=== PATIENT | female | born 1990 | race African-American/Black ===

== ENCOUNTER 2018-05-19 09:15 | Observation (INO) ==
[2018-05-18 11:38] LABS: Basophils % 0.5 % (0.0-0.8); Eosinophils # 0.1 10*3/uL (0.0-0.87); Eosinophils % 1.5 % (0.00-10.9); Hematocrit 35.1 VOL% (35.7-47.0); Hemoglobin 11.8 GM/DL (12.0-16.0); Immature Granulocytes % 0.6 %; Immature Granulocytes Absolute 0.04 #; Lymphocytes # 1.4 10*3/uL (1.4-4.0); Lymphocytes % 23.1 % (21.3-54.2); Mean Corpuscular HGB Conc 33.6 GM/DL (32-36); Mean Corpuscular Hemoglobin 31 PG (27-34); Mean Corpuscular Volume 90.7 FL (87-102); Mean Platelet Volume 10.2 FL (9.6-12.0); Monocytes # 0.4 10*3/uL (0.11-0.8); Monocytes % 6.8 % (1.7-12.7); Neutrophils # 4.2 10*3/uL (1.4-7.4); Neutrophils % 67.5 % (38.7-73.9); Platelet Count 251 T/CUMM (130-400); Red Blood Count 3.87 MC/CUMM (3.8-5.5); Red Cell Distribution Width 14.6 % (9.3-17.3); White Blood Count 6.2 T/CUMM (4-12)
[2018-05-18 11:57] LABS: Amorphous Crystals,Urine Few /HPF (Few); Apearance,Urine CLOUDY (Clear); Bilirubin,Urine Negative (Negative); Blood, Urine Moderate mg/dL (Negative); Glucose,Urine (UA) Negative (Negative); Ketones,Urine Negative (Negative); Mucus,Urine Occasional /LPF (Occasional); Nitrite,Urine Negative (Negative); Protein,Urine Negative; Squamous Epithelial Cell,Urine Occasional /HPF (0-10); Urine Color Yellow (Yellow); Urine Specific Gravity 1.016 (1.001-1.035); Urine Urobilinogen < 2.0 EU/DL (0.2-1.0); WBC,Urine 3 /HPF (0-6)
[2018-05-18 11:59] LABS: Alanine Aminotransferase 14 U/L (13-56); Albumin 2.8 G/DL (3.4-5.0); Alkaline Phosphatase 37 U/L (45-117); Aspartate Amino Transferase 15 U/L (0-37); Bilirubin,Total < 0.39 MG/DL (0.2-1.0); Blood Urea Nitrogen 8 MG/DL (7-18); Calcium 8.3 MG/DL (8.5-10.1); Glucose 80 MG/DL (74-106); Osmolality,Calculated 273.5 MOS/KG (273-304); Potassium 3.7 MMOL/L (3.5-5.1); Sodium 139 MMOL/L (136-145); Total Protein 6.9 G/DL (6.4-8.3)
[2018-05-18 12:46] LABS: HIV Antigen/Antibody Result Nonreactive (Nonreactive)
[2018-05-19] MEDS ORDERED: LACTATED RINGERS 1,000 ML IV STA (10:04)
[2018-05-19] MEDS ORDERED: fentaNYL 100 MCG/2 ML VIAL ONE (13:52)
[2018-05-19] MEDS ORDERED: ONDANSETRON 4 MG/2 ML VIAL ONE (13:53)
[2018-05-19] MEDS ORDERED: BUPIVACAINE SPINAL 0.75% 2 ML AMP SPINAL ONE (13:53)
[2018-05-19] MEDS ORDERED: MEPERIDINE 50 MG/1 ML VIAL IM PRN (16:00)
[2018-05-19] MEDS ORDERED: ONDANSETRON 4 MG/2 ML VIAL IM PRN (16:00)
[2018-05-19] MEDS ORDERED: LACTATED RINGERS 1,000 ML IV SCH (18:00)
[2018-05-20 04:01] VITALS: BP 106/59
== END 2018-05-20 10:50 | disposition home or self-care (01) ==
LOC: N.OR 09:15 → N.LD 09:15 → N.SDSINP 09:16 → N.LD 15:12
PROVIDERS: ADMIT Obstetrics & Gynecology; ATTEND Obstetrics & Gynecology

== ENCOUNTER 2018-09-03 06:41 | Inpatient (IN) ==
[2018-09-03] MEDS ORDERED: CITRIC ACID/SODIUM CITRATE 30 ML UDCUP PO ONE (07:33)
[2018-09-03] MEDS ORDERED: ceFAZolin 2,000 MG in PREMIX 1 EACH IV ONE (07:33)
[2018-09-03] MEDS ORDERED: FAMOTIDINE 20 MG/2 ML VIAL IV ONE (07:33)
[2018-09-03] MEDS ORDERED: miSOPROStol 200 MCG TABLET ONE (07:53)
[2018-09-03] MEDS ORDERED: CARBOPROST TROMETHAMINE 250 MCG/ML AMP IM ONE (07:54)
[2018-09-03] MEDS ORDERED: METHYLERGONOVINE 0.2 MG/1 ML AMP ONE (07:54)
[2018-09-03 08:00] LABS: Basophils % 0.4 % (0.0-0.8); Eosinophils # 0.1 10*3/uL (0.0-0.87); Eosinophils % 1.1 % (0.00-10.9); Hematocrit 37.6 VOL% (35.7-47.0); Hemoglobin 12.2 GM/DL (12.0-16.0); Immature Granulocytes % 1.8 %; Lymphocytes # 1.3 10*3/uL (1.4-4.0); Lymphocytes % 23.6 % (21.3-54.2); Mean Corpuscular HGB Conc 32.4 GM/DL (32-36); Mean Corpuscular Hemoglobin 30 PG (27-34); Mean Corpuscular Volume 92.8 FL (87-102); Mean Platelet Volume 11.4 FL (9.6-12.0); Monocytes # 0.5 10*3/uL (0.11-0.8); Monocytes % 8.8 % (1.7-12.7); Neutrophils # 3.7 10*3/uL (1.4-7.4); Neutrophils % 64.3 % (38.7-73.9); Platelet Count 220 T/CUMM (130-400); Red Blood Count 4.05 MC/CUMM (3.8-5.5); Red Cell Distribution Width 14.3 % (9.3-17.3); White Blood Count 5.7 T/CUMM (4-12)
[2018-09-03] MEDS: LACTATED RINGERS 1,000 ML IV SCH ×2 (08:16→09:51)
[2018-09-03] MEDS ORDERED: METOCLOPRAMIDE 10 MG/2 ML VIAL IV ONE (08:23)
[2018-09-03 08:24] LABS: Alanine Aminotransferase 12 U/L (13-56); Albumin 2.3 G/DL (3.4-5.0); Alkaline Phosphatase 136 U/L (45-117); Aspartate Amino Transferase 13 U/L (0-37); Bilirubin,Total < 0.39 MG/DL (0.2-1.0); Blood Urea Nitrogen 5 MG/DL (7-18); Calcium 8.5 MG/DL (8.5-10.1); Glucose 88 MG/DL (74-106); Osmolality,Calculated 268.8 MOS/KG (273-304); Potassium 3.6 MMOL/L (3.5-5.1); Sodium 137 MMOL/L (136-145); Total Protein 6.5 G/DL (6.4-8.3)
[2018-09-03] MEDS ORDERED: OXYTOCIN/LR 30 UNIT/1,000 ML BAG IV ONE (08:42)
[2018-09-03] MEDS ORDERED: OXYTOCIN 10 UNIT/ML VIAL IM ONE (08:42)
[2018-09-03] MEDS ORDERED: SUGAMMADEX 200 MG/2 ML VIAL IV ONE (08:45)
[2018-09-03 09:12] LABS: Apearance,Urine Slightly Hazy (Clear); Bacteria,Urine Occasional /HPF (Few); Bilirubin,Urine Negative (Negative); Blood, Urine Moderate mg/dL (Negative); Glucose,Urine (UA) Negative (Negative); Ketones,Urine Negative (Negative); Mucus,Urine Moderate /LPF (Occasional); Nitrite,Urine Negative (Negative); Protein,Urine 30 MG/DL; RBC,Urine 118 /HPF (0-4); Squamous Epithelial Cell,Urine Occasional /HPF (0-10); Urine Color Yellow (Yellow); Urine Specific Gravity 1.021 (1.001-1.035); Urine Urobilinogen < 2.0 EU/DL (0.2-1.0); WBC,Urine 3 /HPF (0-6)
[2018-09-03 09:31] LABS: Cord Arterial Blood HCO3 22.1 MMOL/L
[2018-09-03 09:35] LABS: Cord Venous Blood HCO3 21.9 MMOL/L; Cord Venous Blood PCO2 53.9 MMHG
[2018-09-03] MEDS ORDERED: MIDAZOLAM 2 MG/2 ML VIAL ONE (10:02)
[2018-09-03] MEDS ORDERED: KETOROLAC 30 MG/1 ML VIAL ONE (10:02)
[2018-09-03] MEDS ORDERED: ONDANSETRON 4 MG/2 ML VIAL ONE (10:02)
[2018-09-03] MEDS ORDERED: PROPOFOL 200 MG/20 ML VIAL IV ONE (10:02)
[2018-09-03] MEDS ORDERED: fentaNYL 100 MCG/2 ML VIAL ONE (10:02)
[2018-09-03] MEDS ORDERED: DEXAMETHASONE 10 MG/1 ML VIAL ONE (10:02)
[2018-09-03] MEDS ORDERED: ROCURONIUM 100 MG/10 ML VIAL IV ONE (10:03)
[2018-09-03] MEDS ORDERED: LACTATED RINGERS 1,000 ML IV ONE (10:03)
[2018-09-03] MEDS ORDERED: PHENYLEPHRINE 1 MG/10 ML SYRINGE IV ONE (10:03)
[2018-09-03] MEDS ORDERED: ONDANSETRON 4 MG/2 ML VIAL IV PRN (10:05)
[2018-09-03] MEDS ORDERED: OXYTOCIN/LR 20 UNIT/1,000 ML BAG IV ONE (10:05)
[2018-09-03] MEDS ORDERED: ACETAMINOPHEN 325 MG TABLET PO PRN (10:05)
[2018-09-03] MEDS ORDERED: MAGNESIUM HYDROXIDE SUSP 30 ML UDCUP PO PRN (10:05)
[2018-09-03] MEDS ORDERED: RHO(D) IMMUNE GLOBULIN 300 MCG SYRINGE IM ONE (10:05)
[2018-09-03] MEDS ORDERED: diphenhydrAMINE 50 MG/1 ML VIAL IV ONE (10:23)
[2018-09-03] MEDS ORDERED: NALOXONE 0.4 MG/ML VIAL IV PRN ×2 (10:27→20:41)
[2018-09-03] MEDS ORDERED: HYDROmorphone 2 MG/1 ML VIAL IV ONE (10:28)
[2018-09-03] MEDS ORDERED: LACTATED RINGERS 1,000 ML IV SCH (10:30)
[2018-09-03] MEDS ORDERED: HYDROmorphone PCA 30 MG/30 ML SYRINGE IV SCH ×2 (10:30→20:41)
[2018-09-03] MEDS ORDERED: SODIUM CHLORIDE 0.9% 1,000 ML IV SCH (10:30)
[2018-09-03] MEDS ORDERED: KETOROLAC 15 MG/1 ML VIAL IV PRN (11:05)
[2018-09-03] MEDS ORDERED: ENOXAPARIN 40 MG/0.4 ML SYRINGE SUBCUT SCH (12:00)
[2018-09-03] MEDS: HYDROmorphone 2 MG/1 ML VIAL IV SCH ×2 (13:13→21:15)
[2018-09-03] MEDS: ceFAZolin 1,000 MG in SYRINGE 1 EACH IV SCH (17:47)
[2018-09-03] MEDS ORDERED: ENOXAPARIN 40 MG/0.4 ML SYRINGE SUBCUT ONE (21:00)
[2018-09-03] MEDS: DOCUSATE SODIUM 100 MG CAPSULE PO SCH (21:08)
[2018-09-03] MEDS: ENOXAPARIN 40 MG/0.4 ML SYRINGE SUBCUT SCH (21:09)
[2018-09-04] MEDS: ceFAZolin 1,000 MG in SYRINGE 1 EACH IV SCH (02:40)
[2018-09-04] MEDS: IBUPROFEN 800 MG TABLET PO PRN (08:07)
[2018-09-04] MEDS: SIMETHICONE CHEW 80 MG TABLET PO PRN (08:07)
[2018-09-04] MEDS: DOCUSATE SODIUM 100 MG CAPSULE PO SCH ×2 (08:09→20:59)
[2018-09-04 10:15] LABS: Apearance,Urine CLEAR (Clear); Bacteria,Urine Occasional /HPF (Few); Bilirubin,Urine Negative (Negative); Blood, Urine Large mg/dL (Negative); Glucose,Urine (UA) Negative (Negative); Ketones,Urine Negative (Negative); Mucus,Urine Occasional /LPF (Occasional); Nitrite,Urine Negative (Negative); Protein,Urine Negative; RBC,Urine 5 /HPF (0-4); Urine Color Straw (Yellow); Urine Specific Gravity 1.004 (1.001-1.035); Urine Urobilinogen < 2.0 EU/DL (0.2-1.0); WBC,Urine <1 /HPF (0-6)
[2018-09-04] MEDS: MULTIVITAMIN (PRENATAL) TABLET PO SCH (18:13)
[2018-09-04] MEDS: ENOXAPARIN 40 MG/0.4 ML SYRINGE SUBCUT SCH (21:00)
[2018-09-04] MEDS: METOCLOPRAMIDE 10 MG TABLET PO SCH (22:10)
[2018-09-05] MEDS: METOCLOPRAMIDE 10 MG TABLET PO SCH ×3 (06:55→22:05)
[2018-09-05] MEDS: MULTIVITAMIN (PRENATAL) TABLET PO SCH (09:18)
[2018-09-05] MEDS: SIMETHICONE CHEW 80 MG TABLET PO PRN (09:18)
[2018-09-05] MEDS: DOCUSATE SODIUM 100 MG CAPSULE PO SCH ×2 (09:18→20:55)
[2018-09-05] MEDS: IBUPROFEN 800 MG TABLET PO PRN (09:18)
[2018-09-05] MEDS: ENOXAPARIN 40 MG/0.4 ML SYRINGE SUBCUT SCH (20:56)
[2018-09-06] MEDS: METOCLOPRAMIDE 10 MG TABLET PO SCH (06:10)
[2018-09-06] MEDS: SIMETHICONE CHEW 80 MG TABLET PO PRN (09:46)
[2018-09-06] MEDS: IBUPROFEN 800 MG TABLET PO PRN (09:47)
[2018-09-06] MEDS: DOCUSATE SODIUM 100 MG CAPSULE PO SCH (09:47)
[2018-09-06] MEDS: MULTIVITAMIN (PRENATAL) TABLET PO SCH (09:47)
== END 2018-09-06 13:00 | disposition home or self-care (01) | DRG 786 ==
LOC: N.LDOUT 06:41 → N.LD 06:45
PROVIDERS: ADMIT Obstetrics & Gynecology; ATTEND Obstetrics & Gynecology
PROC: LDCSECT (ICD-10-PCS; 2018-09-03 08:45)

== ENCOUNTER 2022-01-02 17:47 | Inpatient (IN) ==
[2022-01-02] MEDS ORDERED: ONDANSETRON 4 MG/2 ML VIAL IV STA (19:58)
[2022-01-02] MEDS ORDERED: ALBUTEROL/IPRATROPIUM 3 ML NEB RESP TX STA (19:58)
[2022-01-02] MEDS ORDERED: methylPREDNISolone SOD SUC 125 MG/2 ML VIAL IV STA (19:58)
[2022-01-02] MEDS ORDERED: BACLOFEN 10 MG TABLET PO ONE (20:11)
[2022-01-02] MEDS ORDERED: ALBUTEROL NEB SOLN 5 MG/ML 20 ML/BOTTLE CONT NEB STA (20:32)
[2022-01-02] MEDS ORDERED: PIPERACILLIN/TAZOBACTAM 3,375 MG in SODIUM CHLORIDE 0.9% 100 ML IV STA (20:44)
[2022-01-02 20:48] LABS: Basophils # 0.1 10*3/uL (0.0-0.2); Basophils % 0.3 % (0.0-0.8); Eosinophils % 0.1 % (0.00-10.9); Hematocrit 41.6 VOL% (35.7-47.0); Immature Granulocytes Absolute 0.17 #; Lymphocytes # 2.2 10*3/uL (1.4-4.0); Lymphocytes % 13.2 % (21.3-54.2); Mean Corpuscular HGB Conc 33.7 GM/DL (32-36); Mean Corpuscular Volume 87.8 FL (87-102); Monocytes # 1.2 10*3/uL (0.11-0.8); NRBC # 0.04 10*3/uL; Neutrophils % 78.4 % (38.7-73.9); Platelet Count 296 T/CUMM (130-400); Red Blood Count 4.74 MC/CUMM (3.8-5.5); Red Cell Distribution Width 13.3 % (9.3-17.3)
[2022-01-02 21:06] LABS: Albumin 3.8 G/DL (3.4-5.0); Bilirubin,Total 0.8 MG/DL (0.20-1.00); Calcium 9.3 MG/DL (8.5-10.1); Osmolality,Calculated 269.8 MOS/KG (273-304); Potassium 3.9 MMOL/L (3.5-5.1); Total Protein 7.6 G/DL (6.4-8.2)
[2022-01-02 21:31] LABS: Lymphocytes 17 % (20-55); Platelet Estimate Adequate; Total Cells Counted 100
[2022-01-02] MEDS ORDERED: ONDANSETRON 4 MG/2 ML VIAL IV PRN (22:49)
[2022-01-02] MEDS ORDERED: GLUCAGON 1 MG VIAL IM PRN (22:49)
[2022-01-02] MEDS ORDERED: ACETAMINOPHEN 325 MG TABLET PO PRN (22:49)
[2022-01-02] MEDS ORDERED: ALUMINUM/MAGNES/SIMETH MAX STR 30 ML UDCUP PO PRN (22:49)
[2022-01-02] MEDS ORDERED: DEXTROSE 10% 250 ML BAG IV PRN (23:19)
[2022-01-02] MEDS ORDERED: KETOROLAC 30 MG/1 ML VIAL IV PRN (23:30)
[2022-01-02] MEDS: SODIUM CHLORIDE 0.9% 1,000 ML IV SCH (23:50)
[2022-01-02] MEDS: ENOXAPARIN 40 MG/0.4 ML SYRINGE SUBCUT SCH (23:50)
[2022-01-03] MEDS: AZITHROMYCIN INJ 500 MG in SODIUM CHLORIDE 0.9% 250 ML IV SCH ×2 (00:10→23:52)
[2022-01-03] MEDS: ALBUTEROL/IPRATROPIUM 3 ML NEB RESP TX SCH ×4 (00:10→19:08)
[2022-01-03 04:27] LABS: Basophils % 0.2 % (0.0-0.8); Hematocrit 36.5 VOL% (35.7-47.0); Hemoglobin 12.2 GM/DL (12.0-16.0); Immature Granulocytes % 1.6 %; Immature Granulocytes Absolute 0.27 #; Lymphocytes % 5.8 % (21.3-54.2); Mean Corpuscular HGB Conc 33.4 GM/DL (32-36); Monocytes # 0.6 10*3/uL (0.11-0.8); Monocytes % 3.6 % (1.7-12.7); NRBC # 0.02 10*3/uL; Neutrophils % 88.8 % (38.7-73.9); Platelet Count 255 T/CUMM (130-400); Red Blood Count 4.15 MC/CUMM (3.8-5.5); Red Cell Distribution Width 13.4 % (9.3-17.3); White Blood Count 16.8 T/CUMM (4-12)
[2022-01-03 04:48] LABS: Calcium 8.4 MG/DL (8.5-10.1); Thyroid Stimulating Hormone 0.208 uIU/ml (0.358-3.74)
[2022-01-03 07:17] LABS: Mucus,Urine Few /LPF (Occasional); RBC,Urine 918 /HPF (0-4)
[2022-01-03 07:19] LABS: Bilirubin,Urine Small mg/dL (Negative); Blood, Urine Large mg/dL (Negative); Glucose,Urine (UA) 100 mg/dL (Negative); Ketones,Urine 40 mg/dL (Negative); Nitrite,Urine Negative (Negative); Protein,Urine 100 mg/dL (Negative); Urine Appearance Cloudy (Clear); Urine Color Red (Yellow)
[2022-01-03] MEDS ORDERED: methylPREDNISolone SOD SUC INJ 1,000 MG in SODIUM CHLORIDE 0.9% 100 ML IV SCH (09:00)
[2022-01-03] MEDS: DOCUSATE SODIUM 100 MG CAPSULE PO SCH ×2 (10:08→21:44)
[2022-01-03] MEDS: BACLOFEN 10 MG TABLET PO SCH ×3 (10:08→21:44)
[2022-01-03] MEDS: POTASSIUM CHLORIDE 20 MEQ TABLET PO SCH ×2 (10:08→11:08)
[2022-01-03] MEDS: guaiFENesin/DM ER 600-30 MG TABLET PO SCH ×2 (10:08→21:44)
[2022-01-03] MEDS: PANTOPRAZOLE 40 MG TABLET PO SCH (10:09)
[2022-01-03] MEDS: SODIUM CHLORIDE 0.9% 1,000 ML IV SCH (10:09)
[2022-01-03] MEDS: cefTRIAXone 1,000 MG in SODIUM CHLORIDE 0.9% 100 ML IV SCH (10:09)
[2022-01-03] MEDS: CHOLECALCIFEROL 1,000 UNIT TABLET PO SCH (17:55)
[2022-01-03] MEDS: predniSONE 20 MG TABLET PO SCH (17:55)
[2022-01-03] MEDS: ENOXAPARIN 40 MG/0.4 ML SYRINGE SUBCUT SCH (23:52)
[2022-01-04] MEDS: ALBUTEROL/IPRATROPIUM 3 ML NEB RESP TX SCH ×2 (00:16→07:30)
[2022-01-04 05:12] LABS: Basophils % 0.1 % (0.0-0.8); Hematocrit 35.9 VOL% (35.7-47.0); Hemoglobin 11.9 GM/DL (12.0-16.0); Immature Granulocytes Absolute 0.18 #; Lymphocytes # 2.3 10*3/uL (1.4-4.0); Lymphocytes % 12.6 % (21.3-54.2); Mean Corpuscular HGB Conc 33.1 GM/DL (32-36); Mean Corpuscular Volume 88.4 FL (87-102); Mean Platelet Volume 11.6 FL (9.6-12.0); Monocytes % 5.4 % (1.7-12.7); NRBC # 0.05 10*3/uL; Neutrophils % 80.9 % (38.7-73.9); Platelet Count 260 T/CUMM (130-400); Red Blood Count 4.06 MC/CUMM (3.8-5.5); Red Cell Distribution Width 13.6 % (9.3-17.3); White Blood Count 18.4 T/CUMM (4-12)
[2022-01-04 05:34] LABS: Calcium 8.3 MG/DL (8.5-10.1); Free T4 (Free Thyroxine) 1.02 NG/DL (0.76-1.46); Osmolality,Calculated 278.4 MOS/KG (273-304); Potassium 3.8 MMOL/L (3.5-5.1)
[2022-01-04 07:31] VITALS: BP 125/81
[2022-01-04] MEDS: SODIUM CHLORIDE 0.9% 1,000 ML IV SCH (08:29)
[2022-01-04] MEDS: CHOLECALCIFEROL 1,000 UNIT TABLET PO SCH (09:50)
[2022-01-04] MEDS: PANTOPRAZOLE 40 MG TABLET PO SCH (09:50)
[2022-01-04] MEDS: BACLOFEN 10 MG TABLET PO SCH (09:51)
[2022-01-04] MEDS: DOCUSATE SODIUM 100 MG CAPSULE PO SCH (09:51)
[2022-01-04] MEDS: cefTRIAXone 1,000 MG in SODIUM CHLORIDE 0.9% 100 ML IV SCH (09:51)
[2022-01-04] MEDS: predniSONE 20 MG TABLET PO SCH (09:51)
[2022-01-04] MEDS: guaiFENesin/DM ER 600-30 MG TABLET PO SCH (09:51)
[2022-01-06] MEDS ORDERED: predniSONE 20 MG TABLET PO SCH (09:00)
== END 2022-01-04 12:49 | disposition home or self-care (01) | DRG 58 ==
LOC: N.ED 17:47 → N.EDINP 22:49 → N.5E 01-03 15:36
PROVIDERS: ADMIT Internal Medicine; ATTEND Internal Medicine